=== PATIENT | female | born 1985 | race Caucasian/White ===

== ENCOUNTER 2019-07-20 23:04 | Emergency (ER) | payer OTHER ==
[~2019-07-20] VITALS: Ht 167.6 cm; Wt 169.6 kg
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
[2019-07-21 00:18] LABS: BASOPHILS # (AUTO) 0.02 x10^3/uL (0-0.1); BASOPHILS % (AUTO) 0 % (0-1); EOSINOPHILS # (AUTO) 0.05 x10^3/uL (0-0.4); EOSINOPHILS % (AUTO) 1 % (1-7); LYMPHOCYTES % (AUTO) 14 % (22-44); MD NO; MEAN CORPUSCULAR HEMOGLOBIN 28.1 pg (27.0-34.8); MEAN CORPUSCULAR HGB CONC 32.8 g/dL (32.4-35.8); MEAN CORPUSCULAR VOLUME 85.6 fL (80-100); MEAN PLATELET VOLUME 10.3 fL (7.4-10.4); MONOCYTES # (AUTO) 0.34 x10^3/uL (0.2-0.8); MONOCYTES % (AUTO) 8 % (2-9); NEUTROPHILS # (AUTO) 3.18 x10^3/uL (1.8-6.8); NEUTROPHILS % (AUTO) 76 % (42-75); PLATELET COUNT 158 x10^3/uL (130-400); RED BLOOD COUNT 4.24 x10^6/uL (3.82-5.3); RED CELL DISTRIBUTION WIDTH 17.6 % (9.6-15.2)
[2019-07-21 00:31] LABS: ALANINE AMINOTRANSFERASE 193 U/L (12-78); ALBUMIN 3.1 g/dL (3.4-5.0); ANION GAP 5 mmol/L (5-15); CALCIUM 7.9 mg/dL (8.5-10.1); CHLORIDE 114 mmol/L (98-107); CREATININE 0.61 mg/dL (0.55-1.02)
[2019-07-21 00:33] LABS: ALKALINE PHOSPHATASE 200 U/L (45-117); BILIRUBIN,TOTAL 0.7 mg/dL (0.2-1.0); TOTAL PROTEIN 7.2 g/dL (6.4-8.2)
--- NOTE | 2019-07-21 01:30 | NUR ---
PT TO IMAGING AT THIS TIME.
--- NOTE | 2019-07-21 01:43 | NUR ---
PT BACK FROM IMAGING
--- NOTE | 2019-07-21 02:02 | NUR ---
PT REPORTING PAIN NOTIFIED ERP. PT UPDATED ON POC.
--- NOTE | 2019-07-21 02:05 | NUR ---
UPDATED PT ON NO NEW ORDERS RELATED TO PAIN AT THIS TIME PER DR. KEANE.
[2019-07-21] MEDS ORDERED: ONDANSETRON 2MG/ML, 2ML IVPush ONE (02:30)
--- NOTE | 2019-07-21 02:46 | NUR ---
C COLLAR REMOVED BY DR. KEANE POST CT RESULTS.
[2019-07-21] MEDS ORDERED: ACETAMINOPHEN 500 MG TABLET ONE (02:48)
[2019-07-21] MEDS ORDERED: ONDANSETRON 2MG/ML, 2ML ONE (02:48)
[2019-07-21] MEDS ORDERED: ACETAMINOPHEN 500 MG TABLET PO ONE (03:00)
[2019-07-21] MEDS ORDERED: ONDANSETRON ODT 4 MG ONE (03:08)
--- NOTE | 2019-07-21 03:11 | NUR ---
PT AT IMAGING AT THIS TIME
[2019-07-21] MEDS ORDERED: ONDANSETRON ODT 4 MG PO ONE (03:30)
--- NOTE | 2019-07-21 04:09 | NUR ---
PT ABLE TO AMBULATE 50FT WITH STEADY GAIT. DR. KEANE NOTIFIED.
[2019-07-21] MEDS ORDERED: BUTALBIT/ACETAMIN/CAFF/CODEINE CAPSULE PO ONE (04:30)
[2019-07-21 04:45] VITALS: BP 105/69
[2019-07-21] MEDS ORDERED: OMNIPAQUE 350 MG/ML, 100ML BOTTLE ONE (04:47)
== END 2019-07-21 04:59 | disposition home or self-care (01) ==
LOC: ED 23:12
DX: S00.03XA Contusion of scalp, initial encounter (principal); S10.93XA Contusion of unspecified part of neck, initial encounter; S40.012A Contusion of left shoulder, initial encounter; S50.12XA Contusion of left forearm, initial encounter; S60.212A Contusion of left wrist, initial encounter; E66.01 Morbid (severe) obesity due to excess calories; R55 Syncope and collapse; J45.909 Unspecified asthma, uncomplicated; W18.39XA Other fall on same level, initial encounter; Y93.01 Activity, walking, marching and hiking; Y92.098 Other place in other non-institutional residence as the place of occurrence of the external cause; Y99.8 Other external cause status
CPT/HCPCS: 36415; 70450; 71260; 72125; 72128; 72131; 73030; 73110; 74177; 80053; 83690; 85025; 99291; Q0162; Q9967; 99284